=== PATIENT | male | born 1950 | race Caucasian/White ===

== ENCOUNTER 2019-08-20 11:16 | Outpatient (CLI) | payer MEDICARE ==
--- NOTE | 2019-08-20 15:48 | RAD ---
LEFT KNEE THREE VIEWS: 08/20/19 The bones are mildly osteopenic which could mask very subtle injuries. No gross acute fracture is see n. There is no large joint effusion, though there could be a small one. On all films, the patella si ts lateral to the midline. This could be just a positioning effect, however, a physical exam should d etermine if there is a lateral subluxation or not. The medial joint space is minimally narrowed. IMPRESSION: 1. No acute fracture seen. 2. Patella persistently lateral in location. Positioning effect versus subluxation. Correlate wi th physical exam. POS: HOME
== END 2019-08-20 11:17 | disposition home or self-care (01) ==
LOC: BURRAD 11:16
PROVIDERS: ATTEND Nurse Practitioner
DX: S80.02XA Contusion of left knee, initial encounter (principal)